=== PATIENT | female | born 1945 | race Two or more races ===

== ENCOUNTER 2019-07-01 05:55 | Day surgery (SDC) | payer OTHER ==
[~2019-07-01 05:55] MED LIST: PEPCID AC20 MG PO; PROTONIX PO; SYNTHROID50 MCG PO
[2019-07-01] MEDS ORDERED: ULTRACET PO (12:54)
[2019-07-01] MEDS ORDERED: RECTICARE30 GM TOP (12:55)
== END 2019-07-01 18:35 | disposition home or self-care (01) ==
LOC: CIR.AMB 05:55
DX: K64.8 Other hemorrhoids (principal); K62.2 Anal prolapse

== ENCOUNTER 2020-07-02 12:00 | Inpatient (IN) | payer OTHER ==
[~2020-07-02] VITALS: Ht 152.4 cm; Wt 66.7 kg
[~2020-07-02 12:00] MED LIST changes: +RECTICARE30 GM TOP; +ULTRACET PO
[2020-07-08] MEDS ORDERED: OMEPRAZOLE20 MG (13:04)
[2020-07-08] MEDS ORDERED: TIZANIDINE HCL4 MG (13:04)
[2020-07-08] MEDS ORDERED: DICLOFENAC POTA50 MG (13:04)
[2020-07-08] MEDS ORDERED: PROTONIX20 MG (13:05)
[2020-07-09] MEDS ORDERED: GABAPENTIN300 MG PO (08:36)
[2020-07-09] MEDS ORDERED: INTESTINEX680 M1 PO (08:37)
[2020-07-09] MEDS ORDERED: HYOSCYAMINE0.125 M1 SL (08:37)
[2020-07-09] MEDS ORDERED: ULTRAM PO (08:40)
== END 2020-07-09 09:15 | disposition home or self-care (01) | DRG 761 ==
LOC: SURH 07-08 07:00 → SURG 07-08 07:54 → O/R 07-08 07:54 → SURH 07-08 12:00 → SURG 07-08 15:58
PROVIDERS: ADMIT Surgery; ATTEND Surgery
PROC: 0UQG7ZZ Repair Vagina, Via Natural or Artificial Opening (ICD-10-PCS; principal; 2020-07-08 07:00)
DX: N81.6 Rectocele (principal); E03.8 Other specified hypothyroidism; D69.6 Thrombocytopenia, unspecified; K64.2 Third degree hemorrhoids